=== PATIENT | male | born 1955 | race American Indian/Alaskan Native ===

== ENCOUNTER 2024-08-22 09:05 | Inpatient (IN) | payer MEDICARE, MEDICAID ==
[~2024-08-22] VITALS: Ht 182.9 cm; Wt 72.7 kg
[~2024-08-22 09:05] MED LIST: ATOR10TA87 PO; DOCU-28 PO; IBUP-1051 PO; LANS15CA14 PO; MAGN296S89 PO
[2024-08-22 09:32] LABS: BASOPHILS % (AUTO) 0.8 % (0-1); EOSINOPHILS # (AUTO) 0.1 X10'3 (0-0.9); EOSINOPHILS % (AUTO) 1.6 % (0-6); HEMATOCRIT 43.3 % (42.0-52.0); HEMOGLOBIN 14.5 g/dl (14.0-17.9); LYMPHOCYTES # (AUTO) 1.5 X10'3 (1.1-4.8); LYMPHOCYTES % (AUTO) 25.2 % (21-51); MEAN CORPUSCULAR HEMOGLOBIN 30.5 PG (27.0-31.0); MEAN CORPUSCULAR HGB CONC 33.6 g/dL (33.0-36.5); MEAN CORPUSCULAR VOLUME 90.9 FL (78-98); MEAN PLATELET VOLUME 8.8 FL (7.4-10.4); MONOCYTES # (AUTO) 0.4 X10'3 (0-0.9); MONOCYTES % (AUTO) 6.2 % (2-12); NEUTROPHILS % (AUTO) 66.2 % (42-75); PLATELET COUNT 191 X10'3 (140-440); RED BLOOD COUNT 4.76 X10'6 (4.70-6.10); RED CELL DISTRIBUTION WIDTH 14.2 % (11.5-14.5); WHITE BLOOD COUNT 6.1 X10'3 (4.5-11.0)
[2024-08-22 09:43] LABS: ALANINE AMINOTRANSFERASE 16 U/L (12-78); ALBUMIN 4.4 G/DL (3.4-5.0); ALBUMIN/GLOBULIN RATIO 1.4 (1.1-1.5); ALKALINE PHOSPHATASE 60 IU/L (46-116); ANION GAP 10 (8-16); ASPARTATE AMINO TRANSFERASE 17 U/L (10-37); BILIRUBIN,TOTAL 1.2 MG/DL (0.1-1.0); BLOOD UREA NITROGEN 16 MG/DL (7-18); CALCIUM 9.7 MG/DL (8.5-10.1); CHLORIDE 106 MMOL/L (99-107); CREATININE 0.84 MG/DL (0.60-1.10); GLUCOSE 108 MG/DL (70-104); POTASSIUM 3.5 MMOL/L (3.5-5.1); SODIUM 140 MMOL/L (135-145); TOTAL CARBON DIOXIDE 24.2 MMOL/L (24-32); TOTAL PROTEIN 7.6 G/DL (6.4-8.2); eCRCL 88 ML/MIN; eGFR > 90 ML/MIN
[2024-08-22] MEDS ORDERED: CLON0.1T PO (09:52)
[2024-08-22] MEDS ORDERED: TIZA-205 PO (09:52)
[2024-08-22] MEDS ORDERED: QUET25TA36 PO (09:52)
[2024-08-22] MEDS ORDERED: LOSA25TA41 PO (09:52)
[2024-08-22] MEDS ORDERED: BUPR1FIL20 SL (09:52)
[2024-08-22] MEDS ORDERED: TRAZ-256 PO (09:52)
[2024-08-22] MEDS ORDERED: ATOR10TA70 PO (09:52)
[2024-08-22] MEDS ORDERED: OMEP20CA16 PO (09:52)
[2024-08-22] MEDS ORDERED: APIX5TAB3 PO (09:52)
[2024-08-22 10:28] LABS: PRO BRAIN NATRIURETIC PEPTIDE 281 PG/ML (0-125)
[2024-08-22] MEDS: aspirin 81mg tab.chew PO ONE (11:06)
[2024-08-22] MEDS: LORazepam 1 MG tablet PO STA (15:20)
[2024-08-22] MEDS ORDERED: magnesium Cl slow-release 64mg tablet PO PRN (15:30)
[2024-08-22] MEDS ORDERED: potassium Cl 40MEQ/1/2NS 520ml 520 ML IV PRN (15:30)
[2024-08-22] MEDS ORDERED: ondansetron/PF 4mg/2ml inj IV PRN (15:30)
[2024-08-22] MEDS ORDERED: HYDROcodone/acetaminophen 5mg/325mg tablet PO PRN (15:30)
[2024-08-22] MEDS ORDERED: potassium Cl 20 mEq SR tablet PO PRN (15:30)
[2024-08-22] MEDS ORDERED: HYDROcodone/acetaminophen 10/325mg tab PO PRN (15:30)
[2024-08-22] MEDS ORDERED: magnesium sulf-water 2g/50mL 50 ML IV PRN (15:30)
[2024-08-22] MEDS ORDERED: mag hydrox/Alum hydrox/simeth 30ml oral suspension PO PRN (15:30)
[2024-08-22] MEDS ORDERED: acetaminophen 325mg tablet PO PRN ×2 (15:30)
[2024-08-22] MEDS ORDERED: magnesium sulf-water 4G/100mL 100 ML IV PRN (15:30)
[2024-08-22] MEDS ORDERED: morphine 2 MG/ML inj. syringe IV PRN (15:30)
[2024-08-22] MEDS: metoprolol succinate 25mg (24-HOUR) SR. Tablet PO SCH (15:35)
[2024-08-22] MEDS ORDERED: aminophylline 250mg/10ml inj. IV PRN (15:45)
[2024-08-22] MEDS ORDERED: nitroGLYCERIN 0.4mg SUBLingual tab SL PRN ×2 (15:45→15:55)
[2024-08-22] MEDS ORDERED: metoprolol tartrate 1mg/ml inj IV PRN (15:45)
[2024-08-22 16:15] LABS: INR 1.1 INR; PROTHROMBIN TIME 11.7 SECONDS (9.0-12.0)
[2024-08-22 16:39] LABS: HEMOGLOBIN A1C 5.4 % (4.5-6.2)
[2024-08-22] MEDS: normal saline 1000ml 1,000 ML IV SCH (17:12)
[2024-08-22 18:00] VITALS: BP 158/82; PULSE 59; RESP 18; TEMP 98.3; O2SAT 99
[2024-08-22 20:00] VITALS: RESP 12; O2SAT 98
[2024-08-22] MEDS: K and/or MAG REPLACEMENT MC SCH (20:00)
[2024-08-22] MEDS: quetiapine 100mg tablet PO SCH (21:00)
[2024-08-22] MEDS: aspirin 81mg, enteric-coated 1 TAB TABLET.DR PO SCH (21:15)
[2024-08-22] MEDS: apixaban 5mg tablet PO SCH (21:16)
[2024-08-22] MEDS: atorvastatin 20mg tablet PO SCH (21:19)
[2024-08-22] MEDS ORDERED: LOSA50TA64 PO (21:34)
[2024-08-22] MEDS ORDERED: AMLO10TA13 PO (21:54)
[2024-08-22 22:00] VITALS: BP 150/69; PULSE 59; RESP 13; TEMP 97.7; O2SAT 99
[2024-08-23] VITALS (15 sets, daily range): BP systolic 129–199; BP diastolic 63–81; PULSE 51–90; RESP 12–24; TEMP 97.4–98; O2SAT 98–100
[2024-08-23 04:32] LABS: INR 1.1 INR; PROTHROMBIN TIME 11.5 SECONDS (9.0-12.0)
[2024-08-23 04:36] LABS: ALANINE AMINOTRANSFERASE 16 U/L (12-78); ALBUMIN 3.6 G/DL (3.4-5.0); ALBUMIN/GLOBULIN RATIO 1.2 (1.1-1.5); ALKALINE PHOSPHATASE 51 IU/L (46-116); ANION GAP 11 (8-16); ASPARTATE AMINO TRANSFERASE 14 U/L (10-37); BILIRUBIN,TOTAL 1.3 MG/DL (0.1-1.0); BLOOD UREA NITROGEN 14 MG/DL (7-18); BUN/CREATININE RATIO 18.9 (10.0-20.0); CALCIUM 8.5 MG/DL (8.5-10.1); CHLORIDE 106 MMOL/L (99-107); CREATININE 0.74 MG/DL (0.60-1.10); GLUCOSE 74 MG/DL (70-104); POTASSIUM 3.4 MMOL/L (3.5-5.1); SODIUM 140 MMOL/L (135-145); TOTAL CARBON DIOXIDE 23.2 MMOL/L (24-32); TOTAL PROTEIN 6.6 G/DL (6.4-8.2); eCRCL 100 ML/MIN; eGFR > 90 ML/MIN
[2024-08-23 04:39] LABS: CHOL/HDL RATIO 2.3 (0.00-4.99); CHOLESTEROL 135 MG/DL (0-200); HDL CHOLESTEROL 58 MG/DL (35-60); LDL CHOLESTEROL 73 MG/DL (50-100); MAGNESIUM 1.9 MG/DL (1.5-2.4); PHOSPHORUS 3.6 MG/DL (2.3-4.5); TRIGLYCERIDES 53 MG/DL (20-135)
[2024-08-23] MEDS: LORazepam 0.5 MG tablet PO PRN (06:07)
[2024-08-23 06:47] LABS: BASOPHILS % (AUTO) 0.8 % (0-1); EOSINOPHILS # (AUTO) 0.1 X10'3 (0-0.9); EOSINOPHILS % (AUTO) 1.5 % (0-6); HEMATOCRIT 38.9 % (42.0-52.0); HEMOGLOBIN 13.1 g/dl (14.0-17.9); LYMPHOCYTES # (AUTO) 1.7 X10'3 (1.1-4.8); MEAN CORPUSCULAR HEMOGLOBIN 30.5 PG (27.0-31.0); MEAN CORPUSCULAR HGB CONC 33.8 g/dL (33.0-36.5); MEAN CORPUSCULAR VOLUME 90.2 FL (78-98); MONOCYTES # (AUTO) 0.5 X10'3 (0-0.9); MONOCYTES % (AUTO) 8.4 % (2-12); NEUTROPHILS # (AUTO) 3.7 X10'3 (1.8-7.7); NEUTROPHILS % (AUTO) 61.3 % (42-75); PLATELET COUNT 161 X10'3 (140-440); RED BLOOD COUNT 4.31 X10'6 (4.70-6.10); RED CELL DISTRIBUTION WIDTH 14.2 % (11.5-14.5)
[2024-08-23] MEDS: nicotine 14mg patch - 24hr TD SCH (08:00)
[2024-08-23] MEDS: pantoprazole 40 MG vial IV SCH (08:00)
[2024-08-23] MEDS: potassium Cl 20 mEq SR tablet PO PRN (08:48)
[2024-08-23] MEDS ORDERED: regadenoson 0.4mg/5ml syringe IV PRN (13:10)
[2024-08-23] MEDS: regadenoson 0.4mg/5ml syringe IV PRN (14:47)
[2024-08-23] MEDS: buprenorphine/naloxone 8MG-2MG SUBlingual film SL SCH (21:07)
[2024-08-23] MEDS: temazepam 15mg capsule PO PRN (21:07)
[2024-08-24 02:00] VITALS: BP 137/64; PULSE 51; RESP 14; TEMP 98; O2SAT 98
[2024-08-24 06:00] VITALS: BP 185/71; PULSE 44; RESP 15; TEMP 97.7; O2SAT 99
[2024-08-24 06:58] LABS: BASOPHILS # (AUTO) 0.1 X10'3 (0-0.2); BASOPHILS % (AUTO) 1.1 % (0-1); EOSINOPHILS # (AUTO) 0.1 X10'3 (0-0.9); EOSINOPHILS % (AUTO) 2.5 % (0-6); HEMATOCRIT 37.2 % (42.0-52.0); HEMOGLOBIN 12.5 g/dl (14.0-17.9); LYMPHOCYTES # (AUTO) 2.1 X10'3 (1.1-4.8); LYMPHOCYTES % (AUTO) 36.5 % (21-51); MEAN CORPUSCULAR HEMOGLOBIN 30.1 PG (27.0-31.0); MEAN CORPUSCULAR HGB CONC 33.6 g/dL (33.0-36.5); MEAN CORPUSCULAR VOLUME 89.8 FL (78-98); MEAN PLATELET VOLUME 9.2 FL (7.4-10.4); MONOCYTES # (AUTO) 0.5 X10'3 (0-0.9); MONOCYTES % (AUTO) 7.9 % (2-12); PLATELET COUNT 157 X10'3 (140-440); RED BLOOD COUNT 4.15 X10'6 (4.70-6.10); RED CELL DISTRIBUTION WIDTH 14.1 % (11.5-14.5); WHITE BLOOD COUNT 5.8 X10'3 (4.5-11.0)
[2024-08-24 07:06] LABS: ALBUMIN 3.4 G/DL (3.4-5.0); ALBUMIN/GLOBULIN RATIO 1.2 (1.1-1.5); ALKALINE PHOSPHATASE 46 IU/L (46-116); ANION GAP 10 (8-16); ASPARTATE AMINO TRANSFERASE 13 U/L (10-37); BLOOD UREA NITROGEN 14 MG/DL (7-18); BUN/CREATININE RATIO 18.7 (10.0-20.0); CALCIUM 8.6 MG/DL (8.5-10.1); CHLORIDE 107 MMOL/L (99-107); CREATININE 0.75 MG/DL (0.60-1.10); GLUCOSE 84 MG/DL (70-104); MAGNESIUM 2.1 MG/DL (1.5-2.4); PHOSPHORUS 3.3 MG/DL (2.3-4.5); POTASSIUM 4.1 MMOL/L (3.5-5.1); SODIUM 141 MMOL/L (135-145); TOTAL CARBON DIOXIDE 23.6 MMOL/L (24-32); TOTAL PROTEIN 6.3 G/DL (6.4-8.2); eCRCL 98 ML/MIN; eGFR > 90 ML/MIN
[2024-08-24 07:09] LABS: ALANINE AMINOTRANSFERASE < 6 U/L (12-78)
[2024-08-24 08:00] VITALS: RESP 15; O2SAT 99
[2024-08-24 08:17] LABS: THYROID STIMULATING HORMONE 0.94 ulU/ml (0.34-4.50)
[2024-08-24] MEDS ORDERED: cloNIDine 0.1 mg tablet PO PRN (08:30)
[2024-08-24 09:24] VITALS: BP_SYST 157; PULSE 63
[2024-08-24] MEDS: hydrALAZINE 20mg/ml inj. IV PRN (09:24)
[2024-08-24] MEDS ORDERED: ATOR20TA66 PO (09:49)
[2024-08-24] MEDS ORDERED: ASPI-1265 PO (09:49)
[2024-08-24] MEDS ORDERED: LORA-269 PO (10:05)
== END 2024-08-24 11:35 | disposition home or self-care (01) | DRG 282 ==
LOC: ER 09:05 → ED HOLD 15:31 → PCU 3S 18:30
PROVIDERS: ADMIT Internal Medicine; ATTEND Internal Medicine
PROC: 4A02XM4 Measurement of Cardiac Total Activity, External Approach (ICD-10-PCS; principal; 2024-08-23)
PROC: 3E033HZ Introduction of Radioactive Substance into Peripheral Vein, Percutaneous Approach (ICD-10-PCS; 2024-08-23)
DX: R00.2 Palpitations (principal); I21.A1 Myocardial infarction type 2; I48.0 Paroxysmal atrial fibrillation; F17.210 Nicotine dependence, cigarettes, uncomplicated; I10 Essential (primary) hypertension; Z96.641 Presence of right artificial hip joint; F41.9 Anxiety disorder, unspecified; G89.29 Other chronic pain; M54.9 Dorsalgia, unspecified; Z79.01 Long term (current) use of anticoagulants; Z79.899 Other long term (current) drug therapy; F17.200 Nicotine dependence, unspecified, uncomplicated
CPT/HCPCS: 36415; 70450; 71045; 78452; 80053; 80061; 83036; 83735; 83880; 84100; 84443; 84484; 85025; 85610; 87081; 93005; 93017; 93306; 99285; A6449; A9500; G0378; J0360; J2470; J2785; J7030